=== PATIENT | male | born 1955 | race Caucasian/White ===

== ENCOUNTER 2021-09-21 23:27 | Emergency (ER) | payer OTHER, MEDICARE, SELFPAY ==
--- NOTE | 2021-09-21 23:30 | RT.EKG_ITS ---
APPROVED REPORT Exam: Resting ECG Reason for Exam: rapid heart rate Patient Location: E HR:92 bpm ECG Measurements Heart Rate 92 AXIS PA [id number] P [id number] QRSd 90 QRS -27 QT 366 T 77 QTc 454 Conclusion Atrial fibrillation...V-rate 60-150, irreg A-activity Anterior infarct, old...Q >40mS, abnormal ST-T, V2-V5
[2021-09-21 23:37] VITALS: BP 113/72; PULSE 141; RESP 12; TEMP 36.8; O2SAT 97
[2021-09-21 23:38] VITALS: PULSE 114; RESP 12; O2SAT 97
[2021-09-21 23:40] VITALS: BP 113/72; PULSE 104; PULSE 55; RESP 18; O2SAT 97
[2021-09-21 23:41] VITALS: PULSE 122; RESP 17; O2SAT 97
[2021-09-21 23:46] VITALS: BP 109/77; PULSE 110; RESP 23; O2SAT 96
--- NOTE | 2021-09-21 23:49 | ED.GENADUL_ITS ---
Discharge Plan Disposition Patient Disposition: HOME Condition: Stable Discharge Details Clinical Impression: Atrial fibrillation with RVR, Palpitations Primary Care Provider: Mayra,Local ED Provider: Param Belcher Home Meds and New Rx's Prescriptions: New Eliquis 5 mg tablet 5 mg PO BID Qty: 60 0RF diltiazem HCl 180 mg capsule,extended release 24 hr 180 mg PO DAILY Qty: 30 0RF Continued atorvastatin 80 mg tablet 1 tab PO DAILY aspirin 81 mg tablet,chewable 1 tab PO DAILY metoprolol succinate 25 mg tablet extended release 24 hr 1 tab PO DAILY lisinopril 2.5 mg tablet 1 tab PO DAILY Discharge Instructions Instructions: A-fib (Atrial Fibrillation) (ED) Additional Instructions: Follow up with your four horse hitch driver if you feel chest pain, lightheaded, difficulty breathing or feel more ill return to the emergency department Medical Decision Making 65 yo male with hx of cad s/p stent 4 years ago, htn, who comes in with cc of feeling his heart is beating irregularly and also fast. He states it started suddenly around 9pm tonight. Denies any chest pain or pressure just feels his heart beating irregularly and denies hx of afib. No recent fevers or chills. He arrives stable and is in afib with rates ranging from 100-140. He has clear lungs, no murmurs, no jvd, speaking in full sentences. Given his rates are over 100 and frequently 140 will treat with iv lopressore and obtain troponin along with cmp to evaluate for electrolyte abnormalities. minimal change with 5mg IV lopressor, will try iv diltiazem pt remains stable other than HR of 110-140 HR now in the 60's and still in afib, will give oral dose of dilt and [id number] score is 2 so discussed with pt and will start on eliquis. Will obtain delta troponin pt still in afib with rates in the 80's, feels better and no pain or lightheadedness. Delta troponin negative. Will start him on diltiazem and eliquis and he has a four horse hitch driver he sees at [facility] [place], return precautions given Differential Diagnosis Differential Diagnosis: afib, electrolyte abnormality, nstemi Lab Data Lab results reviewed: Yes I reviewed the patient's lab results. ECG Data Attestation: I personally reviewed and interpreted this ECG (s) as follows: Prior ECG tracings: not available for review Interpretation: Afib rate of 92, no acute st t wave ischemic findings 2nd ekg afib rate of [address] t wave ischemic findings HPI General Mode of arrival: ambulatory . Date/Time Provider Initiated Documentation: 09/21/21 23:33 . Limitations to Documentation: no limitations . Information obtained by: patient . History of Present Illness 65 year old M presents to the emergency department with the chief complaint of palpitations, described as moderate, and is localized to the chest. Patient reports no radiation. Patient started experiencing this hour(s) (2) and it has been constant. No relieving factors improve symptom(s), No exacerbating factors reported . Patient did receive the following treatments prior to arrival, none Related Data Home Medications Medication Instructions Recorded Confirmed aspirin 81 mg chewable tablet 1 tab PO DAILY 09/21/21 09/21/21 atorvastatin 80 mg tablet 1 tab PO DAILY 09/21/21 09/21/21 lisinopril 2.5 mg tablet 1 tab PO DAILY 09/21/21 09/21/21 metoprolol succinate 25 mg 1 tab PO DAILY 09/21/21 09/21/21 tablet,extended release 24 hr apixaban 5 mg tablet (Eliquis) 5 mg PO BID #60 tabs 09/22/21 diltiazem HCl 180 mg capsule,24 180 mg PO DAILY #30 caps 09/22/21 hr,extended release Previous Rx's Medication Instructions Recorded apixaban 5 mg tablet (Eliquis) 5 mg PO BID #60 tabs 09/22/21 diltiazem HCl 180 mg capsule,24 180 mg PO DAILY #30 caps 09/22/21 hr,extended release Allergies Allergy/AdvReac Type Severity Reaction Status Date / Time No Known Allergies Allergy Unverified 09/21/21 23:43 General Stated Complaint: Palpitatns NIKO: 2 Review of Systems All systems reviewed & are unremarkable except as noted in HPI and below Constitutional Constitutional: Denies chills, Denies fever(s) and Denies weakness Cardiovascular Cardiovascular: Denies dyspnea Respiratory Respiratory: Denies dyspnea Gastrointestinal Gastrointestinal: Denies nausea and Denies vomiting Integumentary/Breasts Skin/Breast: Denies rash Neurologic Neurologic: Denies weakness PFSH All Active Problems (Updated 09/22/21 @ 02:57 by Param Belcher MD) Atrial fibrillation with RVR (Acute) Palpitations (Acute) Social History Smoking/Tobacco Use Status: Never Smoking risk assessment performed?: Yes Alcohol Intake: current Alcohol Intake frequency: 0-2 drinks per day Alcohol type: beer Drug use: Never Substance use type: does not use Do you feel safe at home: Yes Do you feel safe in your relationship?: Yes Exam Const General: no acute distress Orientation: alert HENMT Head: normal to inspection Ears: external ears normal General nose exam: external nose normal Mouth: moist mucous membranes Eyes General: appearance normal, both eyes and all related structures Neck Neck: normal visual inspection Resp Effort & Inspection: normal respiratory effort and able to speak in complete sentences Cardio Jugular venous pressure: no JVD Skin General skin exam: no rashes or lesions noted Neuro General: patient alert and patient oriented x3 Extrem General: normal to inspection Psych Mental Status: mental status grossly normal Course Vital Signs Vital signs: Vital Signs Temperature 36.8 C 09/21/21 23:37 Pulse 141 H 09/21/21 23:37 Respiratory Rate 12 09/21/21 23:37 Blood Pressure 113/72 09/21/21 23:37 Pulse Oximetry 97 09/21/21 23:37 Temperature 36.8 C 09/21/21 23:37 Temperature Source Skin 09/21/21 23:37 Pulse 141 H 09/21/21 23:37 Respiratory Rate 12 09/21/21 23:37 Respiratory Effort Non-Labored 09/21/21 23:40 Blood Pressure 113/72 09/21/21 23:37 Blood Pressure Position Supine 09/21/21 23:37 Pulse Oximetry 97 09/21/21 23:37 Oxygen Delivery Method Room Air 09/21/21 23:37 Oxygen Flow Rate 0 09/21/21 23:37 Pain Level 0 09/21/21 23:40 Critical Care Time Critical Care Time Critical Care Time: Yes Total Critical Care Time: 45 (minutes) Attestation: time spent reviewing labs, frequent reassessments and administering IV bridget blockers in patient with afib with rvr and potential to deteriorate at any time PAWSS Have you Been Recently Intoxicated or Drunk Within the Last 30 days?: No Have you Ever Experienced Previous Episodes of Alcohol Withdrawal?: No Have you ever Experienced Withdrawal Seizures?: No Have you ever Experienced Delirium Tremens(DT)s?: No Have you ever undergone Alcohol Rehabilitation Treatment (i.e, inpt ot outpatient treatment programs)?: No Have you ever Experienced Blackouts?: No Have you ever Combined Alcohol with other Downers within the last 90 days?: No Have you ever Combined Alcohol with any other Substance of Abuse during the last 90 days?: No Positive Blood Alcohol level on Presentation? [PCS.BAL]: No Evidence of Increased Autonomic Activity (i.e. HR>120, tremor, sweating, agitati on, nausea)?: No Result: 0
[2021-09-21 23:50] VITALS: PULSE 114; RESP 18; O2SAT 97
[2021-09-21 23:57] LABS: Abs Immature Grans 0.02 10^3/uL (0.0-0.06); Absolute Basophil Count 0.05 10^3/uL (0.0-0.2); Absolute Eosinophil Count 0.24 10^3/uL (0.0-0.7); Absolute Lymphocyte Count 2.03 10^3/uL (1.2-3.4); Absolute Monocyte Count 0.57 10^3/uL (0.1-0.8); Absolute Neutrophil Count 3.72 10^3/uL (1.2-6.7); Basophils % 0.8; Eosinophils % 3.6; HCT 41.6 % (40.0-50.0); HGB 14.3 g/dL (13.5-17.5); Immature Grans % 0.3; Lymphocytes % 30.6; MCH 33.6 pg (27.0-33.0); MCHC 34.4 % (32.0-36.0); MCV 98 fL (80-95); MPV 11.3 fL (8.0-11.0); Monocytes % 8.6; Neutrophils % 56.1; Platelet Count 152 10^3/uL (130-400); RBC 4.25 10^6/uL (4.36-5.78); RDW 11.9 % (11.8-14.1); RDW-SD 43.5 fL; WBC 6.63 10^3/uL (4.4-10.8)
[2021-09-22] VITALS (155 sets, daily range): BP systolic 81–107; BP diastolic 57–75; PULSE 46–140; RESP 11–42; TEMP 36.9; O2SAT 85–99
[2021-09-22] MEDS: Metoprolol 5 MG/5 ML VIAL IVP ×2 (00:04)
[2021-09-22 00:16] LABS: ALT 29 U/L (16-63); AST 32 U/L (15-37); Albumin 3.7 g/dL (3.4-5.0); Alkaline Phosphatase 80 U/L (46-116); Anion Gap 6.9 mmol/L (3-11); BUN 25 mg/dL (7-18); Bilirubin, Total 0.3 mg/dL (0.2-1.0); CO2 27.1 mmol/L (21.0-32.0); CREATININE 0.8 mg/dL (0.70-1.30); Calcium 8.8 mg/dL (8.5-10.1); Chloride 106 mmol/L (98-107); Glucose 117 mg/dL (74-106); Magnesium 1.8 mg/dL (1.8-2.4); Potassium 3.8 mmol/L (3.5-5.1); Sodium 140 mmol/L (136-145); Total Protein 6.8 g/dL (6.4-8.2); Troponin I < 50 ng/L (<or=60)
[2021-09-22] MEDS: dilTIAZem 25 MG/5 ML VIAL 20 MG IVP (00:56)
[2021-09-22] MEDS: Normal Saline 1,000 ML 1000 ML IV (00:57)
[2021-09-22] MEDS: Apixaban 5 MG TAB PO (01:47)
[2021-09-22] MEDS: dilTIAZem CD 180 MG CAPCR PO (01:47)
--- NOTE | 2021-09-22 02:45 | RT.EKG_ITS ---
APPROVED REPORT Exam: Resting ECG Reason for Exam: rapid heart rate Patient Location: E HR:74 bpm ECG Measurements Heart Rate 74 AXIS PA [id number] P [id number] QRSd 96 QRS -26 QT 409 T 58 QTc 456 Conclusion Atrial fibrillation...V-rate 54- 94, irreg A-activity Anterior infarct, old...Q >40mS, abnormal ST-T, V2-V5
[2021-09-22 03:15] LABS: Troponin I < 50 ng/L (<or=60)
== END 2021-09-22 03:35 | disposition home or self-care (01) ==
PROVIDERS: Emergency Provider Emergency Medicine
DX: I48.91 Unspecified atrial fibrillation (principal); I25.10 Atherosclerotic heart disease of native coronary artery without angina pectoris; I10 Essential (primary) hypertension; Z95.5 Presence of coronary angioplasty implant and graft; Z79.01 Long term (current) use of anticoagulants
CPT/HCPCS: 36415; 80053; 93005; 96361; 96374; 96375; 99291; 83735; 84484; 85025; 93010